=== PATIENT | female | born 1970 | race Caucasian/White ===

== ENCOUNTER 2017-11-15 11:49 | Emergency (ER) | payer MEDICAID ==
[2017-11-15 13:34] LABS: URINE BLOOD (Dip) POC Negative (NEGATIVE); URINE GLUCOSE (Dip) POC Negative (NEGATIVE); URINE KETONES (Dip) POC Negative (NEGATIVE); URINE LEUKOCYTE EST (Dip) POC Negative (NEGATIVE); URINE NITRITE (Dip) POC Negative (NEGATIVE); URINE TOTAL PROTEIN POC Negative (NEGATIVE)
[2017-11-15] MEDS: MECLIZINE 12.5 MG TAB PO (13:36)
[2017-11-15] MEDS: ONDANSETRON (ODT) 4 MG TAB ODT (13:36)
[2017-11-15 13:41] LABS: ADD MAN DIFF? NO
[2017-11-15 13:45] LABS: WHITE BLOOD COUNT 5.2 10^3/ul (4.8-10.8)
[2017-11-15 13:45] LABS: BASOPHILS % 0.2 % (0.0-2.0); EOSINOPHILS % 0.4 % (0.0-7.0); HEMOGLOBIN 13.6 g/dl (12.0-16.0); LYMPHOCYTES # 1.6 10^3/ul (0.8-2.9); LYMPHOCYTES % 31.5 % (15.0-51.0); MEAN CORPUSCULAR HEMOGLOBIN 30.2 pg (29.0-33.0); MEAN CORPUSCULAR HGB CONC 32.4 g/dl (32.0-37.0); MEAN CORPUSCULAR VOLUME 93.3 fl (82.0-101.0); MEAN PLATELET VOLUME 10.2 fl (7.4-10.4); MONOCYTE # 0.3 10^3/ul (0.3-0.9); NEUTROPHIL # 3.2 10^3/ul (1.6-7.5); NEUTROPHILS % 61.9 % (39.0-77.0); PLATELET COUNT 242 10^3/UL (140-415); RED CELL DISTRIBUTION WIDTH 12.4 % (11.5-14.5)
[2017-11-15 14:02] LABS: ANION GAP 13 (8-16); BLOOD UREA NITROGEN 17 mg/dl (7-20); CALCIUM 10.2 mg/dl (8.4-10.2); CARBON DIOXIDE 30 mmol/L (21-31); CHLORIDE 104 mmol/L (97-110); CREATININE 0.58 mg/dl (0.44-1.00); GLUCOSE 96 mg/dl (70-220); POTASSIUM 4.3 mmol/L (3.5-5.1); SODIUM 143 mmol/L (135-144)
[2017-11-15 14:13] LABS: TROPONIN-I < 0.012 ng/ml (0.000-0.120)
== END 2017-11-15 15:15 | disposition home or self-care (01) ==
LOC: FTE 11:49
DX: H81.10 Benign paroxysmal vertigo, unspecified ear (principal); H93.19 Tinnitus, unspecified ear; R06.02 Shortness of breath
CPT/HCPCS: 71045; 80048; 81003; 81025; 84484; 85025; 93005; 99285-25